=== PATIENT | male | born 1955 | race Caucasian/White ===

== ENCOUNTER 2018-05-23 14:18 | Emergency (ER) | payer OTHER ==
[~2018-05-23] VITALS: Ht 175.3 cm; Wt 82.3 kg
[2018-05-23 14:22] VITALS: TEMP 36.8; Ht 175.3 cm; Wt 82.3 kg
[2018-05-23 15:15] LABS: BASO % 0.3 %; BASO ABS # 0.02 K/uL (0-0.2); EOS % 5.1 %; EOS ABS # 0.41 K/uL (0-0.5); HEMATOCRIT 42.1 % (42-52); HEMOGLOBIN 14.7 g/dL (14.0-18.0); IG# 0.02 K/uL (0.00-0.02); LYMPH % 28.7 %; LYMPH ABS # 2.29 K/uL (1.2-3.4); MEAN CELL VOLUME 85.6 fL (80-100); MEAN CORPUSCULAR HEMOGLOBIN 29.9 pg (25-34); MEAN CORPUSCULAR HGB CONC 34.9 g/dl (32-36); MEAN PLATELET VOLUME 9.9 fL (7.4-10.4); MONO % 6.8 %; MONO ABS # 0.54 K/uL (0.11-0.59); NEUT % 58.8 %; NEUT ABS # 4.69 K/uL (1.4-6.5); PLATELET COUNT 203 K/uL (130-400); RED CELL DISTRIBUTION WIDTH CV 13.4 % (11.5-14.5); RED CELL DISTRIBUTION WIDTH SD 41.7 fL (36.4-46.3); WHITE BLOOD COUNT 7.97 K/uL (4.8-10.8)
[2018-05-23] MEDS ORDERED: SLSS EXT (15:41)
[2018-05-23] MEDS ORDERED: PHEN15TA PO (15:41)
[2018-05-23] MEDS ORDERED: VNTHFA/IN INH (15:41)
[2018-05-23] MEDS ORDERED: KLN/5 PO (15:41)
[2018-05-23] MEDS ORDERED: AMLO10CA PO (15:41)
[2018-05-23] MEDS ORDERED: ASPI81TA28 PO (15:41)
--- NOTE | 2018-05-23 15:46 | EMERGENCY ROOM VISIT NOTE ---
History Report prepared by Tasha: Skye Corral Under the Supervision of: Dr. Koby Howard M.D. First contact with patient: 15:02 Chief Complaint: MENTAL HEALTH EVALUATION Stated Complaint: DIZZY History of Present Illness The patient is a 63 year old white male with a past medical history of depression, valve replacement surgery, and COPD who presents to the ED with a cc of constant dizziness beginning 2 days ago. He notes he had been taking Klonopin, which he felt "took the edge off" his depression. He states he has been depressed since open heart surgery 3 years ago, and that 1 year ago he began taking 3 Klonopin pills daily without a prescription. The patient notes he recently began feeling as though he should stop taking Klonopin without a prescription, and discussed it with his psychiatrist who recommended lowering the Klonopin dose and restarting his Nardil. He states he got down to 1 pill daily, and began feeling very depressed. The patient notes he then saw Dr. Smith last week as his ripening room attendant was out of town, who recommended he start taking 3 Klonopin pills daily again, along with 4 Nardil pills. He states he recently began feeling very dizzy and unable to walk across a room without feeling as though he would fall over. The patient also notes he has not felt clear-headed and had some nausea. He denies SI, HI, auditory or visual hallucinations, or vomiting. The patient notes he quit smoking 6 years ago and denies blood thinner use. He states he has not taken his breathing medications recently as they are prohibitively expensive on his new insurance. Source of History: patient Onset: 2 days ago Position: head Quality: other (dizziness) Associated Symptoms: + nausea, No vomiting Note: Associated symptom: nausea. Denies: SI, HI, auditory or visual hallucination. Review of Systems See HPI for pertinent positives and negatives. A total of ten systems were reviewed and were otherwise negative. Past Medical & Surgical Medical Problems: (1) COPD (chronic obstructive pulmonary disease) (2) Depression Surgical Problems: (1) History of open heart surgery COPD (chronic obstructive pulmonary disease) Depression Family History No pertinent family history stated. Social History Smoking Status: Former Smoker Current/Historical Medications Scheduled Amlodipine/Benazepril (Lotrel 10MG/20MG), 1 CAP PO DAILY Aspirin (Aspirin Ec), 162 MG PO DAILY Clonazepam (Klonopin), 0.5 MG PO TID Phenelzine Sulfate (Nardil), 15 MG PO QID Scheduled PRN Albuterol Hfa (Ventolin Hfa), 1-2 PUFFS INH Q4 PRN for Wheezing Selenium Sulfide (Selsun), 1 APPLN EXT UD PRN for Affected Skin Folds Allergies Coded Allergies: No Known Allergies (Unverified , 05/23/18) Physical Exam Vital Signs Date Time Temp Pulse Resp B/P (MAP) Pulse Ox O2 Delivery O2 Flow Rate FiO2 05/23/18 19:48 52 18 142/70 100 05/23/18 18:11 53 18 103/63 97 Room Air 05/23/18 16:17 55 16 104/60 95 Room Air 05/23/18 14:22 36.8 72 20 109/72 96 Room Air Physical Exam GENERAL: Awake, alert, well-appearing, NAD, wearing glasses HENT: Normocephalic, atraumatic. EYES: Normal conjunctiva. Sclera non-icteric. PERRL. No anisocoria. No nystagmus noted NECK: Supple. No nuchal rigidity. FROM. RESPIRATORY: CTAB, no rhonchi, wheezing, crackles CARDIAC: RRR, no MRG CHEST: Midline sternotomy scar ABDOMEN: Soft, NTND, BS+ MSK: No chest wall TTP, no LE edema NEURO: CN 2-12 intact, 5/5 upper and lower extremity strength, no dysmetria, no drift, good finger to nose, no sensory deficits. Finger count grossly normal. SKIN: No rash or jaundice noted. Medical Decision & Procedures Laboratory Results 05/23/18 14:58 Red Blood Count 4.92, Mean Corpuscular Volume 85.6, Mean Corpuscular Hemoglobin 29.9, Mean Corpuscular Hemoglobin Concent 34.9, Mean Platelet Volume 9.9, Neutrophils (%) (Auto) 58.8, Lymphocytes (%) (Auto) 28.7, Monocytes (%) (Auto) 6.8, Eosinophils (%) (Auto) 5.1, Basophils (%) (Auto) 0.3, Neutrophils # (Auto) 4.69, Lymphocytes # (Auto) 2.29, Monocytes # (Auto) 0.54, Eosinophils # (Auto) 0.41, Basophils # (Auto) 0.02 05/23/18 14:58 Test 05/23/18 14:45 05/23/18 14:58 Urine Color YELLOW Urine Appearance CLEAR (CLEAR) Urine pH 6.5 (4.5-7.5) Urine Specific [place] 1.015 (1.000-1.030) Urine Protein NEG (NEG) Urine Glucose (UA) NEG (NEG) Urine Ketones NEG (NEG) Urine Occult Blood NEG (NEG) Urine Nitrite NEG (NEG) Urine Bilirubin NEG (NEG) Urine Urobilinogen NEG (NEG) Urine Leukocyte Esterase NEG (NEG) Urine Opiates Screen NEG (NEG) Urine Methadone, Qualitative NEG (NEG) Urine Barbiturates NEG (NEG) Urine Phencyclidine (PCP) Level NEG (NEG) Ur Amphetamine/Methamphetamine NEG (NEG) MDMA (Ecstasy) Screen NEG (NEG) Urine Benzodiazepines Screen NEG (NEG) Urine Cocaine Metabolite NEG (NEG) Urine Marijuana (THC) NEG (NEG) White Blood Count 7.97 K/uL (4.8-10.8) Red Blood Count 4.92 M/uL (4.7-6.1) Hemoglobin 14.7 g/dL (14.0-18.0) Hematocrit 42.1 % (42-52) Mean Corpuscular Volume 85.6 fL (80-100) Mean Corpuscular Hemoglobin 29.9 pg (25-34) Mean Corpuscular Hemoglobin Concent 34.9 g/dl (32-36) Platelet Count 203 K/uL (130-400) Mean Platelet Volume 9.9 fL (7.4-10.4) Neutrophils (%) (Auto) 58.8 % Lymphocytes (%) (Auto) 28.7 % Monocytes (%) (Auto) 6.8 % Eosinophils (%) (Auto) 5.1 % Basophils (%) (Auto) 0.3 % Neutrophils # (Auto) 4.69 K/uL (1.4-6.5) Lymphocytes # (Auto) 2.29 K/uL (1.2-3.4) Monocytes # (Auto) 0.54 K/uL (0.11-0.59) Eosinophils # (Auto) 0.41 K/uL (0-0.5) Basophils # (Auto) 0.02 K/uL (0-0.2) RDW Standard Deviation 41.7 fL (36.4-46.3) RDW Coefficient of Variation 13.4 % (11.5-14.5) Immature Granulocyte % (Auto) 0.3 % Immature Granulocyte # (Auto) 0.02 K/uL (0.00-0.02) Anion Gap 8.0 mmol/L (3-11) Est Creatinine Clear Calc Drug Dose 79.2 ml/min Estimated GFR () 96.1 Estimated GFR (Non- 82.9 BUN/Creatinine Ratio 17.3 (10-20) Calcium Level 8.6 mg/dl (8.5-10.1) Total Bilirubin 0.6 mg/dl (0.2-1) Aspartate Amino Transf (AST/SGOT) 17 U/L (15-37) Alanine Aminotransferase (ALT/SGPT) 20 U/L (12-78) Alkaline Phosphatase 68 U/L (45-117) Troponin I < 0.015 ng/ml (0-0.045) Total Protein 6.8 gm/dl (6.4-8.2) Albumin 3.5 gm/dl (3.4-5.0) Globulin 3.3 gm/dl (2.5-4.0) Albumin/Globulin Ratio 1.1 (0.9-2) Thyroid Stimulating Hormone (TSH) 1.510 uIu/ml (0.300-4.500) Salicylates Level < 1.7 mg/dl (2.8-20) Acetaminophen Level < 2 ug/ml (10-30) Ethyl Alcohol mg/dL < 3.0 mg/dl (0-3) Laboratory results reviewed by me ECG Per My Interpretation Indication: weakness Rate (beats per minute): 52 Rhythm: sinus bradycardia Findings: T-wave inversion (in AVL), other (normal intervals. normal axis. ) ED Course 151: The patient was evaluated in room A5. A complete history and physical exam was performed. 1829: The patient is amenable to rehab. 2124: The patient wishes to go home. He is ready for discharge. Medical Decision Nursing notes reviewed. Ancillary studies and prior records reviewed. The patient is a 63 year old white male with a past medical history of depression, valve replacement surgery, and COPD who presents to the ED with a cc of constant dizziness beginning 2 days ago. Differential diagnosis: Etiologies such as weakness, dizziness, mood disorder, infection, hypoglycemia, electrolyte abnormalities, cardiac sources, intracerebral event, toxicologic, neurologic, as well as others were entertained. Patient was seen and evaluated the bedside. Patient was presenting for some dizziness which described as lightheadedness. The patient did have a recent change in his Nardil and the patient has been self-medicating with Klonopin for approximately 1 year. The patient states he has had some depression possibly 3 years ever since he had an aortic valve repair which was 14 so the patient is not taking blood thinning medications. Patient does not complain of any chest pains or shortness of breath. The patient has no lower extremity edema. Patient currently denies any SI, HI, or AVH. The patient would like to get off of his Klonopin. No ataxia noted. Patient did have blood work completed workup of his dizziness in addition to his possible addition complaints. Patient had a fairly unremarkable workup. Patient had a fairly unremarkable EKG. Patient does have no priors to compare to. The patient had normal blood work. The patient was medically cleared and was evaluated by mental specialist. The patient was pending possible referral to rehab however the patient did not want to wait for referral. Patient was able to ambulate. I believe this is reasonable as the patient does not acutely require inpatient psychiatric treatment but certainly could benefit in the future from rehab. Patient was counseled to follow the recommendations as discussed with his psychiatrist for titrating down on his Klonopin. Patient is not again acutely suicidal, highly homicidal, denies any AVH. Patient was given strict follow-up, discharge, and return precautions. All questions were answered. Patient was deemed suitable for outpatient follow-up at this time. Patient agreed with the plan of care and was safely discharged home. Medication Reconcilliation Current Medication List: was personally reviewed by me Blood Pressure Screening Patient's blood pressure: Normal blood pressure Blood pressure disposition: Did not require urgent referral Impression Primary Impression: Depression Additional Impressions: Substance abuse Counseling on substance use and abuse Lightheaded Scribe Attestation The scribe's documentation has been prepared under my direction and personally reviewed by me in its entirety. I confirm that the note above accurately reflects all work, treatment, procedures, and medical decision making performed by me. Departure Information Dispostion Home / Self-Care Referrals (PCP) Forms HOME CARE DOCUMENTATION FORM, IMPORTANT VISIT INFORMATION Patient Instructions Addiction Drug Abuse Tx, My [facility] Additional Instructions Please return to the emergency department if you have worsening or recurrent symptoms not amenable to at-home treatment. Please call for a follow-up appointment with her primary care physician. Please take your medications as prescribed. If you have other concerns and/or complaints please feel free to also call your primary care physician's office or return the ED for further evaluation, management, and treatment. Take your medications as prescribed. Please consider stopping taking her Klonopin as last discussed with your psychiatrist. Please follow-up with rehab as needed. You have been examined and treated today on an emergency basis only. This is not a substitute for, or an effort to provide, complete comprehensive medical care. It is impossible to recognize and treat all injuries or illnesses in a single emergency department visit. It is therefore important that you follow up closely with [facility], your PCP, and/or your specialist(s). Call as soon as possible for an appointment. Thank you for your time and consideration. I look forward to speaking with you again soon. Please don't hesitate to call us if you have any questions. Problem Qualifiers Primary Impression: Depression Depression Type: major depressive disorder Major depression recurrence: recurrent Active/Remission status: currently active Major depression episode severity: mild Qualified Codes: F33.0 - Major depressive disorder, recurrent , mild
[2018-05-23 15:47] LABS: ALBUMIN 3.5 gm/dl (3.4-5.0); ALKALINE PHOSPHATASE 68 U/L (45-117); ALT/SGPT 20 U/L (12-78); AST/SGOT 17 U/L (15-37); BLOOD UREA NITROGEN 17 mg/dl (7-18); CALCIUM 8.6 mg/dl (8.5-10.1); CARBON DIOXIDE 25 mmol/L (21-32); CREATININE 0.98 mg/dl (0.60-1.40); GLUCOSE 83 mg/dl (70-99); POTASSIUM 4.2 mmol/L (3.5-5.1); SODIUM 137 mmol/L (136-145); TOTAL PROTEIN 6.8 gm/dl (6.4-8.2)
[2018-05-23 19:48] VITALS: BP 142/70; PULSE 52; O2SAT 100
== END 2018-05-23 19:52 | disposition home or self-care (01) ==
LOC: C.EDB 14:21 → C.EDA 19:52
DX: F33.0 Major depressive disorder, recurrent, mild (principal); R42 Dizziness and giddiness; J44.9 Chronic obstructive pulmonary disease, unspecified; Z79.899 Other long term (current) drug therapy; Z87.891 Personal history of nicotine dependence; Z79.82 Long term (current) use of aspirin